=== PATIENT | male | born 1975 | race Hispanic/Latino ===

== ENCOUNTER → 2021-02-19 | Outpatient (CLI) | payer BC | LOC: US 14:56 | PROVIDERS: ATTEND Family Medicine | DX: N50.89 Other specified disorders of the male genital organs (principal) | CPT/HCPCS: 76870; 93976 ==

== ENCOUNTER → 2025-06-04 | Outpatient (REF) | payer OTHER ==
[~2025-06-04] MED LIST: ENULOSE10 GM/15 M PO; LIPITOR10 MG PO; METOPROLOL SUCC25 MG PO; XIFAXAN550 MG PO; ZESTRIL10 MG PO
== END ==
LOC: US 07:29
PROVIDERS: ATTEND Nurse Practitioner
DX: R74.8 Abnormal levels of other serum enzymes (principal); K76.82 Hepatic encephalopathy
CPT/HCPCS: 76700; 76856

== ENCOUNTER 2025-06-11 17:09 | Emergency (ER) | payer BC, OTHER ==
[~2025-06-11] VITALS: Ht 175.3 cm; Wt 154.2 kg
[2025-06-11 18:01] VITALS: TEMP 98.4
[2025-06-11 21:44] VITALS: PULSE 79; RESP 17; O2SAT 100
[2025-06-11] MEDS: DEXAMETHASONE SOD PHOS 10 MG/1 ML VIAL IM ONE (22:44)
[2025-06-11] MEDS ORDERED: MEDROL4 M2 PO (22:52)
[2025-06-11] MEDS ORDERED: CYCLOBENZAPRINE5 MG PO (22:52)
== END 2025-06-11 23:01 | disposition home or self-care (01) ==
LOC: ER 22:22
DX: M54.6 Pain in thoracic spine (principal); X50.1XXA Overexertion from prolonged static or awkward postures, initial encounter; Y92.89 Other specified places as the place of occurrence of the external cause; I10 Essential (primary) hypertension; E78.5 Hyperlipidemia, unspecified
CPT/HCPCS: 99283; J1100